=== PATIENT | female | born 1970 | race Caucasian/White ===

== ENCOUNTER → 2016-06-30 | Outpatient (CLI) | payer BC ==
[2016-06-30 15:20] LABS: HEMOGLOBIN 13.4 gm/dl (12.3-15.3); RED BLOOD COUNT 4.67 M/UL (4.00-5.10); WHITE BLOOD COUNT 6.9 K/UL (4.5-11.0)
[2016-06-30 15:48] LABS: BUN/CREATININE RATIO 30 (0-10)
== END ==
LOC: LAB 14:39
PROVIDERS: General Practice
DX: E11.9 Type 2 diabetes mellitus without complications (principal); J30.9 Allergic rhinitis, unspecified; J45.20 Mild intermittent asthma, uncomplicated; I89.0 Lymphedema, not elsewhere classified; I10 Essential (primary) hypertension; K64.8 Other hemorrhoids; K59.00 Constipation, unspecified; E03.9 Hypothyroidism, unspecified; E78.5 Hyperlipidemia, unspecified; F32.9 Major depressive disorder, single episode, unspecified
CPT/HCPCS: 36415; 80053; 80061; 82043; 82570; 83036; 84443; 85025

== ENCOUNTER → 2021-07-29 | Outpatient (CLI) | payer BC | LOC: KOH-I 09:38 | DX: M25.572 Pain in left ankle and joints of left foot (principal); M21.612 Bunion of left foot; M77.32 Calcaneal spur, left foot; M19.072 Primary osteoarthritis, left ankle and foot | CPT/HCPCS: 73610; 73630 ==